=== PATIENT | male | born 1965 | race Caucasian/White ===

== ENCOUNTER 2017-01-26 19:30 | Emergency (ER) | payer BC ==
[~2017-01-26] VITALS: Ht 165.1 cm; Wt 108.2 kg
[~2017-01-26 19:30] MED LIST: NORC10TA2 PO; OMEP20TA39 PO
[2017-01-26 19:34] VITALS: BP 153/98; PULSE 67; RESP 16; TEMP 98.4; O2SAT 98
[2017-01-26] MEDS ORDERED: MULTTAB67 PO (19:47)
[2017-01-26] MEDS ORDERED: VITA200013 (19:47)
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
[2017-01-26] MEDS ORDERED: LIDOCAINE HCL 1% 50 ML VIAL INFIL ONE (21:45)
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
[2017-01-26] MEDS ORDERED: SODIUM CHLOR 0.9% 1000 ML INJ 1,000 ML IV SCH (22:05)
[2017-01-26] MEDS ORDERED: MORPHINE SULFATE 4 MG/ML INJ IV PUSH ONE (22:15)
[2017-01-27 00:07] VITALS: BP 110/61; PULSE 60; RESP 18; O2SAT 97
[2017-01-27] MEDS ORDERED: KETOROLAC TROMETHAMINE 30 MG/ML (IVP) VIAL IV PUSH ONE (00:15)
[2017-01-27] MEDS ORDERED: MORPHINE SULFATE 4 MG/ML INJ IV PUSH ONE (00:15)
[2017-01-27] MEDS ORDERED: AMOXICILLIN/CLAVULANATE K 875 MG TAB PO ONE (00:15)
[2017-01-27] MEDS ORDERED: AUGM875T3 PO (00:23)
[2017-01-27] MEDS ORDERED: PERC5TAB12 PO (00:23)
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
[2017-01-27 00:36] VITALS: RESP 18
[2017-01-27 00:56] VITALS: BP 108/70
== END 2017-01-27 01:00 | disposition home or self-care (01) ==
LOC: PHEFT 19:30
DX: S02.31XA Fracture of orbital floor, right side, initial encounter for closed fracture (principal); S01.112A Laceration without foreign body of left eyelid and periocular area, initial encounter; Y04.0XXA Assault by unarmed brawl or fight, initial encounter
CPT/HCPCS: 12015; 70450; 70486; 96361; 96374; 96375; 96376; 99285; J1885; J2270; J7030